=== PATIENT | female | born 1945 | race American Indian/Alaskan Native ===

== ENCOUNTER 2017-12-09 08:27 | Day surgery (SDC) | payer MEDICARE ==
[2017-12-01 08:54] VITALS: BMI 30.6
[2017-12-09 10:40] LABS: INR 1.05; PROTHROMBIN TIME 12.1 SECONDS (9.4-12.5)
[2017-12-09] MEDS ORDERED: Bupivacaine 0.5% Inj(30mL) ONE (10:41)
[2017-12-09] MEDS ORDERED: Lidocaine 1% Inj (20ml) ONE ×2 (10:41→12:27)
[2017-12-09 10:43] LABS: PARTIAL THROMBOPLASTIN TIME 32.3 Seconds (25.1-36.5)
[2017-12-09] MEDS ORDERED: Propofol 10 mg/ml Inj (20 ML) ONE ×3 (12:03→12:27)
[2017-12-09] MEDS ORDERED: HYDROmorphone 0.5 mg/0.5 ml ISec IVP PRN (12:57)
[2017-12-09] MEDS ORDERED: Lactated Ringer's 1,000 ML IV SCH (13:00)
[2017-12-09] MEDS ORDERED: Oxycodone/Acetaminophen 5/325 mg Tab PO PRN (13:01)
--- NOTE | 2017-12-09 13:01 | PCM.SURG1 ---
Surgeon's Initial Post Op Note - Surgeon's Notes Surgeon: Dr. Pastrana Non Ferrous Material Handler: Odalis PGY2, Rosita PGY3, Michele PILLAI Type of Anesthesia: IV Sedation, Local Anesthesia Administered By: Dr. Richard Pre-Operative Diagnosis: Multiple sclerosis Operative Findings: see operative dictation Post-Operative Diagnosis: Multiple sclerosis Operation Performed: Right subclavian port insertion Specimen/Specimens Removed: N/A Estimated Blood Loss: EBL {In ML}: 5 Blood Products Given: N/A Drains Used: No Drains Post-Op Condition: Good Date of Surgery/Procedure: 12/09/17 Time of Surgery/Procedure: 13:00
[2017-12-09] MEDS ORDERED: HYDROmorphone 0.5 mg/0.5 ml ISec IVP ONE ×4 (13:05→13:50)
[2017-12-09] MEDS ORDERED: HYDROmorphone 0.5 mg/0.5 ml ISec ONE ×4 (13:08→13:47)
[2017-12-09 13:34] VITALS: RESP 18
[2017-12-09 13:43] VITALS: O2SAT 96
--- NOTE | 2017-12-09 13:50 | RAD ---
Date of service: 12/09/2017 PROCEDURE: Fluoroscopy up to 1 hour HISTORY: PORT -A- CATH INSERTION COMPARISON: TECHNIQUE: 63.6 seconds of fluoro time. Cumulative dose 4.56 mGy. A single image was submitted FINDINGS: The study shows placement of a right subclavian Port-A-Cath. The tip of the catheter is at the junction of the SVC and right atrium IMPRESSION: As above
[2017-12-09 14:30] VITALS: BP 114/78; PULSE 71; TEMP 98.2
[2017-12-09] MEDS ORDERED: Oxycodone/Acetaminophen 5/325 mg Tab ONE (14:49)
--- NOTE | 2017-12-09 14:58 | RAD ---
Date of service: 12/09/2017 HISTORY: portacath COMPARISON: 12/01/2017 FINDINGS: LUNGS: There is a right subclavian Port-A-Cath the terminates at the junction of the SVC and right atrium. There is no pneumothorax PLEURA: No significant pleural effusion identified, no pneumothorax apparent. CARDIOVASCULAR: Normal. OSSEOUS STRUCTURES: No significant abnormalities. VISUALIZED UPPER ABDOMEN: Normal. OTHER FINDINGS: None. IMPRESSION: There is a right subclavian Port-A-Cath that terminates at the junction of the SVC and right atrium. There is no pneumothorax
--- NOTE | 2017-12-20 07:31 | OP ---
Copied To: Samson Pastrana MD Attending MD: Samson Pastrana MD PROCEDURE DATE: 12/09/2017 DESCRIPTION OF PROCEDURE: Kathie Emmanuel was seen for port. The patient was prepped and draped in the usual manner and after the time-out was successful, the right subclavian was accessed. The right subclavian was infiltrated with 1% Xylocaine. Trocar needle was inserted followed by the guidewire. The pocket was then raised with a transverse incision using Xylocaine. It was dissected down to the fascia of the chest wall and the pocket measured and adequate. The Silastic catheter was placed in a tunneler and the tunneler was seen to go through the pocket under the skin superior and lateral to the punctum, and then out through a dilated port by the guidewire. This has been flushed with heparin. The area in the right upper quadrant was dilated and the peel-away placed. The catheter was then inserted through the peel-away and into the right ventricle very nicely. It was peeled away and the catheter pulled back to the point of election, a little bit below the gudelia at the superior vena cava right atrial interface. It was irrigated and flushed nicely. There was no kink on the floor. The catheter was then subcutaneously placed into the pocket using the crimping plastic trimmed. It was attached very nicely superior to the chest wall. The incision was closed with Vicryl followed by subcuticular PDS both at the chest wall and by the insertion site. The patient was taken to the recovery room in good condition where an x-ray was obtained showing this in a good position without issue. Samson Pastrana MD
== END 2017-12-09 15:45 | disposition home or self-care (01) ==
LOC: SDS 08:27
PROVIDERS: ATTEND Surgery
DX: G35 Multiple sclerosis (principal); I10 Essential (primary) hypertension; J40 Bronchitis, not specified as acute or chronic; Z87.891 Personal history of nicotine dependence; I25.10 Atherosclerotic heart disease of native coronary artery without angina pectoris; I25.2 Old myocardial infarction; G62.9 Polyneuropathy, unspecified; E78.00 Pure hypercholesterolemia, unspecified; I77.9 Disorder of arteries and arterioles, unspecified; Z95.1 Presence of aortocoronary bypass graft
CPT/HCPCS: 36415; 36561; 71045; 85610; 85730; C1751; J1170; J1644; J2405; J2704; J3010; J7120 ×2